=== PATIENT | male | born 1955 | race Caucasian/White ===

== ENCOUNTER 2019-01-24 11:46 | Emergency (ER) | payer OTHER ==
[~2019-01-24] VITALS: Ht 180.3 cm; Wt 104.3 kg
[~2019-01-24 11:46] MED LIST: CIPRO HC OTIC S10 ML; CIPRO250 M1; CIPRO500 MG PO; CIPROFLOXACIN500 M1 PO; FINASTERIDE5 MG PO; FLAGYL500 MG PO; FLOMAX; HYDROCODONE-AP1 EAC6 PO; MACROBID 100 M100 M1 PO; PHENAZOPYRIDIN200 M2 PO; TAMSULOSIN HCL0.4 M1 PO; ZPAK
[2019-01-24 12:35] LABS: ABSOLUTE NEUTROPHILS 8.2 thou/uL (1.4-8.2); BASOPHILS 0.6 % (0.0-2.0); EOSINOPHILS 0.3 % (0.0-3.0); HEMATOCRIT 46.2 % (42.0-52.0); HEMOGLOBIN 16.5 gm/dL (14.0-18.0); MCH 32.4 pg (26.0-34.0); MCHC 35.6 g/dL (28.0-37.0); MCV 91.1 fL (80.0-100.0); MONOCYTES 5.5 % (1.0-8.0); PLATELET COUNT 242 thou/uL (150-400); POLYS 80.6 % (36.0-66.0); RBC 5.07 mil/uL (4.50-6.00); RDW 13.1 % (10.5-14.5); WBC 10.1 thou/uL (4.0-11.0)
[2019-01-24 12:52] LABS: ANION GAP 13 mmol/L (7-16); BUN 25 mg/dL (7-18); CALCIUM 10.1 mg/dL (8.5-10.1); CHLORIDE 100 mmol/L (98-107); CO2 25 mmol/L (21-32); CREATININE 1.1 mg/dL (0.7-1.3); GLUCOSE 162 mg/dL (74-106); SODIUM 138 mmol/L (136-145)
[2019-01-24] MEDS ORDERED: CHLORTHALIDONE25 MG PO (12:57)
[2019-01-24] MEDS ORDERED: METFORMIN HCL500 MG PO (12:57)
[2019-01-24 13:02] LABS: ALBUMIN 4.3 g/dL (3.4-5.0); SGOT 35 U/L (15-37); SGPT 43 U/L (30-65); TOTAL BILIRUBIN 2.1 mg/dL (<0.1-1.0); TOTAL PROTEIN 7.8 g/dL (6.4-8.2); TROPONIN-I <0.06 ng/mL (<0.06)
[2019-01-24 13:03] LABS: POTASSIUM 3.7 mmol/L (3.5-5.1)
[2019-01-24 13:23] LABS: URINE BILIRUBIN NEGATIVE (Negative); URINE BLOOD NEGATIVE (Negative); URINE CLARITY CLEAR; URINE COLOR YELLOW; URINE GLUCOSE-RANDOM* TRACE (Negative); URINE KETONES TRACE (Negative); URINE LEUKOCYTES 1+ (Negative); URINE NITRITE POSITIVE (Negative); URINE PROTEIN (DIPSTICK) TRACE (Negative); URINE SPECIFIC GRAVITY 1.015 (1.005-1.035)
[2019-01-24 13:26] LABS: BACTERIA >30 Many /HPF (None Seen); CASTS None Seen /LPF (None Seen); CRYSTALS None Seen /LPF (None Seen); SQUAMOUS 0-3 Few /LPF (0-3); URINE RBC None Seen /HPF (0-2); URINE WBC 6-15 Few /HPF (0-5)
[2019-01-24 13:29] LABS: AMP/METHAMP Negative (Negative); BARBITURATES Negative (Negative); BENZODIAZEPINES Negative (Negative); COCAINE Negative (Negative); METHADONE Negative (Negative); OPIATES Negative (Negative); PCP Negative (Negative)
[2019-01-24] MEDS ORDERED: ANTIVERT25 MG PO (14:07)
[2019-01-24] MEDS ORDERED: KEFLEX500 M1 PO (14:07)
[2019-01-24 14:30] VITALS: BP 128/74
--- NOTE | 2019-01-25 08:54 | EKG ---
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1955 Requested By: Iris Recinos Order Number: [id number] MD: Arvin Mccabe Measurements Intervals [place] Rate: 59 P: 54 ME: 184 QRS: 22 QRSD: 92 T: 3 QT: 415 QTc: 412 Interpretive Statements Sinus bradycardia Nonspecific ST and T wave abnormality Compared to ECG 09/01/1997 20:55:00 No significant change was found Electronically Signed On 01-25-2019 8:54:19 CDT by Arvin Mccabe [email or web address] ��������������������������������������������� <ELECTRONICALLY SIGNED> ���������������������������������������� By: Arvin Mccabe MD, [facility] ��������������������������������������������� 01/25/19 0854 1234 1234 Arvin Mccabe MD, FAC /EPI
== END 2019-01-24 14:28 | disposition home or self-care (01) ==
LOC: ER 11:46
PROVIDERS: Physician Assistant
DX: N39.0 Urinary tract infection, site not specified (principal); Z87.442 Personal history of urinary calculi